=== PATIENT | male | born 1945 | race Caucasian/White ===

== ENCOUNTER 2017-08-09 20:36 | Emergency (ER) | payer MEDICARE, OTHER ==
[~2017-08-09] VITALS: Ht 172.7 cm; Wt 70.5 kg
[~2017-08-09 20:36] MED LIST: HCTZ 25MG25 MG PO; NORCO 325 MG-51 TAB PO; PRAVASTATIN SOD40 MG PO; PREDNISONE20 M1 PO; SPIRIVA INH IH; VIBRAMYCIN100 MG PO; ZYLOPRIM 100MG100 MG PO
[2017-08-09] MEDS ORDERED: KEFLEX250 M1 PO (21:22)
[2017-08-09 22:00] VITALS: BP 131/78
== END 2017-08-09 22:00 | disposition home or self-care (01) ==
LOC: ED 20:36
DX: B35.3 Tinea pedis (principal); I10 Essential (primary) hypertension; J44.9 Chronic obstructive pulmonary disease, unspecified; F17.200 Nicotine dependence, unspecified, uncomplicated